=== PATIENT | female | born 1950 | race Caucasian/White ===

== ENCOUNTER 2017-06-20 12:50 | Emergency (ER) | payer OTHER, MEDICARE ==
[2017-06-20 13:40] VITALS: BP 153/75
[2017-06-20] MEDS ORDERED: Acetaminophen TAB* 325 MG PO ONE (14:23)
--- NOTE | 2017-06-20 14:24 | UC ---
FLU HPI - HPI Summary HPI Summary: 66 y/o female presents to the urgent care c/o MILLER, chills and 3 episodes since this morning. Pt reports she had a normal BM when she woke up. Then she went to her DR at [place] for her chronic back. In her way here she started to feel chills, sweats,MILLER, abdominal cramping and had to stop on the road because of 3 episodes of diarrhea. She had mild nasal congestion w/ clear discharge yesterday. Pt has not taking anything to alleviate symptoms. Pt Denies SOB, dizziness, SOB, chest pain, abdominal pain now, N/V. - History of Current Complaint Chief Complaint: UCGI Stated Complaint: DIARRHEA, HEADACHE, CHILLS Time Seen by Provider: 06/20/17 14:07 Hx Obtained From: Patient Hx Last Menstrual Period: n/a ?: No Onset/Duration: Gradual Onset, Lasting Hours - this morning 6 hrs, Still Present Severity Currently: Mild Severity Initially: Moderate Pain Intensity: 5 - Headache Pain Scale Used: 0-10 Numeric Associated Signs & Symptoms: Positive: Fever, Myalgia, Headache, Diarrhea - 3 episodes today - Risk Factors Influenza Risk Factors: Negative - Allergy/Home Medications Allergies/Adverse Reactions: Allergies Allergy/AdvReac Type Severity Reaction Status Date / Time Penicillins Allergy Hives Verified 06/20/17 13:32 povidone-iodine Allergy See Comment Verified 06/20/17 13:32 [From Betadine] soap [From Betadine] Allergy See Comment Verified 06/20/17 13:32 contact dermatitis Allergy Itching Uncoded 06/20/17 13:32 seasonal Allergy Runny Nose Uncoded 06/20/17 13:32 Home Medications: Home Medications Cyanocobalamin TAB* [Vitamin B12 TAB*] 500 mcg PO DAILY 06/20/17 [History Confirmed 06/20/17] Gabapentin CAP(*) [Neurontin 300 CAP(*)] 300 mg PO TID 06/20/17 [History Confirmed 06/20/17] Multivitamin [Multivitamins] 1 cap PO DAILY 06/20/17 [History Confirmed 06/20/17 ] PMH/Surg Hx/FS Hx/Imm Hx Previously Healthy: Yes Other Endocrine History: fibromyalgia Cardiovascular History: Hypertension GI/ History: Gastroesophageal Reflux Other Neurological History: Degenerative Disc disease, herniated disc - Surgical History Surgical History: Yes Surgery Procedure, Year, and Place: right shoulder, neck fusion c5-6 in 2013 - Family History Known Family History: Positive: Cardiac Disease, Hypertension Negative: Seizure Disorder, Blood Disorder - Social History Occupation: Retired Lives: With Family Alcohol Use: Occasionally Substance Use Type: None Smoking Status (MU): Former Smoker When Did the Patient Quit Smoking/Using Tobacco: 20 + years Review of Systems Constitutional: Fever, Chills Skin: Negative Eyes: Negative Respiratory: Cough Cardiovascular: Negative Gastrointestinal: Diarrhea - 3 episodes Genitourinary: Negative Motor: Negative Neurovascular: Negative Musculoskeletal: Negative Neurological: Headache Psychological: Negative Is Patient Immunocompromised?: No All Other Systems Reviewed And Are Negative: Yes Physical Exam - Summary Physical Exam Summary: Vital Signs Reviewed: Yes General:Patient is a well developed and nourished female who is sitting comfortable in the examining table. Patient is not in any acute respiratory distress. Eyes: Positive: Conjunctiva Clear - PERRLA, EOMI, fundi grossly normal ENT: Positive: Normal ENT inspection, Hearing grossly normal, Pharynx normal, TMs normal Neck: Positive: Supple, Nontender, No Lymphadenopathy Respiratory: Positive: Chest non-tender, Lungs clear, Normal breath sounds, No respiratory distress Cardiovascular: Positive: RRR,S1 and S2 present, No Murmur, Pulses Normal, Brisk Capillary Refill Abdomen Description: Positive: Nontender, Other: - Abd: Flat with no distention. No surface trauma, scars, incisions. hyperactive bowel sounds present in all four quadrants. No tenderness, guarding, rigidity to palpation. No masses palpated, no pulsation in epigastric area. No organomegaly. Negative Dexter signs. No periumbilical tenderness. NT over McBurneys point. Good femoral pulses bilaterally. No hernia noted. No CVAT bilaterally Musculoskeletal: Positive: Strength Intact, ROM Intact, No Edema,FROM in all major joints, no edema, no cyanosis or clubbing. Neuro: Alert and oriented x 3. No acute neurological deficits. Speech is normal. Psychological: WNL Skin: Dry and warm Triage Information Reviewed: Yes Vital Signs: Initial Vital Signs Temp 100.1 F 06/20/17 13:36 Pulse 110 06/20/17 13:36 Resp 20 06/20/17 13:36 BP 153/75 06/20/17 13:36 Pulse Ox 99 06/20/17 13:36 Flu Course/Dx - Course Course Of Treatment: 66 y/o female presents to the urgent care c/o MILLER, chills and 3 episodes since this morning. Pt reports she had a normal BM when she woke up. Then she went to her DR at [place] for her chronic back. In her way here she started to feel chills, sweats,MILLER, abdominal cramping and had to stop on the road because of 3 episodes of diarrhea. She had mild nasal congestion w/ clear discharge yesterday. Pt has not taking anything to alleviate symptoms. Pt Denies SOB, dizziness, SOB, chest pain, abdominal pain now, N/V. Pt is probably febrile, w/ a viral syndrome on examination. Influenza A&B ordered: result: negative. Pt given Tyelenol PO to alleviate fever and MILLER. Pt tollerated well medication and felt better. Advised to continue w/ Ibuprofen/ Tylenol PO to alleviate symptoms. Increase fluid intake and eat soft meals, avoid strenuous exercise. If symptoms do not improve or worsen advised to return to the urgent care or f/u with her PCP for further evaluation and treatment.Pt's BP is elevated today advised to decrease salt in diet, monitor BP and f/u with PCP for further management. Pt understood and agreed with plan of care. - Differential Dx/Diagnosis Differential Diagnosis/HQI/PQRI: Influenza, Upper Respiratory Infection, Other - Gastroenteritis Provider Diagnoses: 1- Viral syndrome. 2-Diarrhea. 3- Uncontrolled HTN Discharge - Discharge Plan Condition: Stable Disposition: HOME Patient Education Materials: Acute Diarrhea (ED), Viral Syndrome (ED), Low- Sodium Diet (ED) Referrals: Yadi Aguilar PA [Primary Care Provider] - 2 Days Additional Instructions: 1- Influenza A&B are negative. 2- Please increase fluid intake w/ Pedialyte OTC or Gatorade, eat soft meals. 3- Take Tyelnol or Ibuprofen PO q6-8hrs as directed after meals to alleviate fever and MILLER . 4- If you develops fever or abdominal pain w/ recurrent episodes of diarrhea please go to the ER, otherwise f/u with your PCP if diarrhea not resolving in 2- 3 days 5-Your BP is elevated today. please decrease salt in your diet, monitor BP and if it continues to be elevated please f/u with your PCP for further management
== END 2017-06-20 14:59 | disposition home or self-care (01) ==
LOC: UCCORT 12:50
DX: B34.9 Viral infection, unspecified (principal); R19.7 Diarrhea, unspecified; I10 Essential (primary) hypertension; Z88.0 Allergy status to penicillin; Z91.048 Other nonmedicinal substance allergy status; Z87.891 Personal history of nicotine dependence
CPT/HCPCS: 87502; 99212; A9270-GY; G0463